=== PATIENT | female | born 1980 | race Caucasian/White ===

== ENCOUNTER 2017-04-12 15:04 | Emergency (ER) | payer MEDICAID ==
[2017-04-12 16:41] LABS: BASOPHILS # (AUTO) 0.1 10^3/uL (0.0-0.1); BASOPHILS % (AUTO) 1.3 %; EOSINOPHILS # (AUTO) 0.7 10^3/uL (0.0-0.7); EOSINOPHILS % (AUTO) 6.8 %; HCT - HEMATOCRIT 42.4 % (37.0-47.0); HGB - HEMOGLOBIN 13.9 g/dL (12.0-16.0); LYMPHOCYTES # (AUTO) 2.6 10^3/uL (1.5-3.5); LYMPHOCYTES % (AUTO) 25.3 %; MEAN CORPUSCULAR HGB CONC 32.9 g/dL (32.0-36.0); MEAN PLATELET VOLUME 9.6 fL (7.9-10.8); MONOCYTES # (AUTO) 0.7 10^3/uL (0.0-1.0); MONOCYTES % (AUTO) 7.3 %; NEUTROPHILS # (AUTO) 6.1 10^3/uL (1.5-6.6); NEUTROPHILS % (AUTO) 59.3 %; RED BLOOD COUNT 5.17 10^6/uL (4.20-5.40); RED CELL DISTRIBUTION WIDTH 16.5 % (12.0-15.0); UNCORRECTED WHITE BLOOD COUNT 10.2 x10^3/uL; WHITE BLOOD COUNT 10.2 x10^3/uL (4.8-10.8)
[2017-04-12 16:53] LABS: ALBUMIN/GLOBULIN RATIO 1.1 (1.0-2.2); BILIRUBIN,TOTAL 0.4 mg/dL (0.2-1.0); CREATININE 1.1 mg/dL (0.4-1.0); POTASSIUM 3.4 mmol/L (3.5-5.0); TOTAL PROTEIN 7.7 g/dL (6.7-8.2)
--- NOTE | 2017-04-12 17:16 | Ultrasound Preliminary Report ---
Exam: US Duplex Ext Veins Left IMPRESSION: No evidence for deep venous thrombosis. [facility] SITE ID: [id number]
--- NOTE | 2017-04-12 17:19 | Ultrasound Report ---
EXAM: LEFT LOWER EXTREMITY VENOUS ULTRASOUND EXAM DATE: 04/12/2017 05:02 PM. CLINICAL HISTORY: Left popliteal and thigh tenderness/pain. COMPARISON: None. TECHNIQUE: Real-time sonographic vascular imaging was performed by the pony cylinder press operator through the lower extremity utilizing both color-flow and Doppler spectral analysis. Multiple freight representative static alka ges were saved for review. FINDINGS: Common Femoral Vein (CFV): Normal. CFV-GSV Junction: Normal. Profunda Femoral Vein (PFV): Normal. Femoral Vein (FV) Prox: Normal. Femoral Vein (FV) Mid: Normal. Femoral Vein (FV) Dist: Normal. Popliteal Vein: Normal. Posterior Tibial Veins: Normal. Peroneal Veins: Normal. Contralateral Side CFV: Normal. Other: None. IMPRESSION: No evidence for deep venous thrombosis. [facility] Referring Provider Line: [phone] SITE ID: [id number]
[2017-04-12] MEDS ORDERED: oxyCOD/ACETAMIN 5 MG/325 MG TABLET PO STA (18:29)
--- NOTE | 2017-04-12 18:32 | ED Physician Documentation ---
PD HPI LOWER EXT INJURY - Stated complaint Stated Complaint: LEG PX/SWELLING - Chief complaint Chief Complaint: Ext Problem - History obtained from History obtained from: Patient - History of Present Illness PD HPI LOW EXT INJURY LOCATION: Left, Upper leg, Lower leg Type of injury: No: Fall, Twist, Blunt / blow Timing - onset: How many days ago (couple) Timing - duration: Days Timing - details: Gradual onset, Still present Worsened by: Palpating Associated symptoms: No: Weakness, Numbness, Swelling Contributing factors: Other (started new med Avara for her rheumatoid (I tried to find it on [employer], but not listed and she was sure of the spelling).) Similar symptoms before: Has not had sx before Recently seen: Other (she talked to her Rhumatology office and they suggested evaluation for concern of DVT.) Review of Systems Constitutional: denies: Fever, Chills Cardiac: denies: Chest pain / pressure, Palpitations Respiratory: denies: Dyspnea, Cough Skin: reports: Rash PD PAST MEDICAL HISTORY - Past Medical History Cardiovascular: High cholesterol Respiratory: None Neuro: Fainting Endocrine/Autoimmune: None GI: GERD, Ulcers, Colon polyps, Chronic diarrhea, Chronic constipation, Hemorrhoids, 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: Endometriosis, Ovarian cysts, Fibroids HEENT: None Psych: Depression, Anxiety, Panic attacks Musculoskeletal: Fibromyalgia, Rheumatoid arthritis, Chronic back pain Derm: None - Past Surgical History Past Surgical History: Yes General: Cholecystectomy /FILLER SHREDDING MACHINE LOADER: section, Hysterectomy, Oophrectomy - Present Medications Home Medications: Ambulatory Orders Medication Instructions Recorded Confirmed Butalb/Acetaminophen/Caffeine 1 each PO Q6H PRN #30 capsule 07/20/14 04/12/17 [Fioricet 50-300-40 mg Capsule] Ondansetron Odt [Zofran] 4 mg TL Q6H PRN #10 tablet 12/16/14 04/12/17 Maalox/Lidocaine 10 ml PO Q6H PRN #120 ml 09/12/15 04/12/17 Meclizine HCl [Bonine] 25 mg PO Q6H PRN #30 tab.chew 11/24/15 04/12/17 Adalimumab [Humira] 40 mg PO DAILY 04/12/17 04/12/17 Avara 10 mg PO DAILY 04/12/17 DULoxetine [Cymbalta] 30 mg PO BID 04/12/17 04/12/17 Fluticasone [Flonase] 2 sprays PO DAILY 04/12/17 04/12/17 Loratadine [Claritin] 10 mg PO DAILY 04/12/17 04/12/17 Oxycodone HCl/Acetaminophen 1 each PO Q6H PRN #15 tablet 04/12/17 [Percocet 5-325 mg Tablet] Pantoprazole [Protonix] 40 mg PO DAILY 04/12/17 04/12/17 Sumatriptan [Imitrex] 25 mg PO DAILY 04/12/17 04/12/17 Topiramate 30 mg PO DAILY 04/12/17 04/12/17 - Allergies Allergies/Adverse Reactions: Allergies Allergy/AdvReac Type Severity Reaction Status Date / Time Penicillins Allergy unknown Verified 04/12/17 16:13 - Social History Does the pt smoke?: Yes Smoking Status: Current every day smoker Does the pt drink ETOH?: No Does the pt have substance abuse?: No - Immunizations Immunizations are current?: Yes - POLST Patient has POLST: No PD ED PE NORMAL - Vitals Vital signs reviewed: Yes - General General: Alert and oriented X 3, No acute distress, Well developed/nourished - Neck Neck: Supple, no meningeal sign, No adenopathy - Cardiac Cardiac: RRR, No murmur - Respiratory Respiratory: No respiratory distress, Clear bilaterally - Back Back: No CVA TTP, No spinal TTP - Derm Derm: Warm and dry - Extremities Extremities: Other (left upper calf and medial thigh tenderness without rash/ redness. No cords felt. Right leg not tender. Mild edema in both ankles. ) Results - Vitals Vitals: Oxygen O2 Source Room air - Labs Labs: Laboratory Tests 04/12/17 04/12/17 16:35 16:35 WBC 10.2 RBC 5.17 Hgb 13.9 Hct 42.4 MCV 82.0 MCH 27.0 MCHC 32.9 RDW 16.5 H Plt Count 226 MPV 9.6 Neut # 6.1 Lymph # 2.6 Sargent # 0.7 Eos # 0.7 Baso # 0.1 Absolute Nucleated RBC 0.00 Nucleated RBC % 0.0 Sodium 139 Potassium 3.4 L Chloride 106 Carbon Dioxide 24 Anion Gap 9.0 BUN 13 Creatinine 1.1 H Estimated GFR (MDRD) 56 L Glucose 85 Calcium 9.0 Total Bilirubin 0.4 AST 31 ALT 45 Alkaline Phosphatase 151 H Total Protein 7.7 Albumin 4.0 Globulin 3.7 Albumin/Globulin Ratio 1.1 Lipase 21 L PD MEDICAL DECISION MAKING - ED course Complexity details: reviewed results (no DVT per [facility]. Consider inflammatory. She says she can't take Ibuprofen and Naproxen due to upsets stomach. Can take Meloxicam but feels it does not help in the past with joint pains/RA. It might help with this leg pain though, so I suggested she consider it. ), considered differential, d/w patient Departure - Departure Disposition: Home, Self Care Clinical Impression: Leg pain, left Condition: Stable Record reviewed to determine appropriate education?: Yes Follow-Up: Jerome Bonilla MD [Primary Care Provider] - Prescriptions: Oxycodone HCl/Acetaminophen [Percocet 5-325 mg Tablet] 1 each PO Q6H PRN #15 tablet PRN Reason: Pain Comments: Continue usual medications. Use Tylenol or Percocet if needed for pains depending upon the severity. Consider taking the meloxicam daily for 3-5 days with food if there is some inflammatory component. Recheck with your primary care if not improved over the next few days. Warm moist towels to the sore area as well periodically. Discharge Date/Time: 04/12/17 18:55
[2017-04-12 18:49] VITALS: BP 128/90
[2017-04-12] MEDS ORDERED: oxyCOD/ACETAMIN 5 MG/325 MG TABLET PO ONE (18:52)
== END 2017-04-12 18:55 | disposition home or self-care (01) ==
LOC: ED 15:04
DX: M79.662 Pain in left lower leg (principal); E78.00 Pure hypercholesterolemia, unspecified; M06.9 Rheumatoid arthritis, unspecified; F17.200 Nicotine dependence, unspecified, uncomplicated
CPT/HCPCS: 36415; 80053; 83690; 85025; 93971; 99282; 99283; A9270